=== PATIENT | female | born 1970 | race African-American/Black ===

== ENCOUNTER 2016-11-27 00:14 | Emergency (ER) | payer SELFPAY ==
[~2016-11-27] VITALS: Ht 160 cm; Wt 77.0 kg
[2016-11-27 06:22] VITALS: BP 127/85
== END 2016-11-27 07:55 | disposition home or self-care (01) ==
LOC: ER 07:39
DX: R20.9 Unspecified disturbances of skin sensation (principal); J45.909 Unspecified asthma, uncomplicated; K76.0 Fatty (change of) liver, not elsewhere classified; F17.200 Nicotine dependence, unspecified, uncomplicated
CPT/HCPCS: 93005; 99283

== ENCOUNTER 2017-03-29 02:02 | Emergency (ER) | payer SELFPAY ==
[~2017-03-29] VITALS: Ht 160 cm; Wt 68.0 kg
[2017-03-29] MEDS ORDERED: SODIUM CHLORIDE 0.9% 1,000 ML IV ONE (04:43)
[2017-03-29] MEDS ORDERED: FAMOTIDINE 20MG/2ML VIAL IV STA (04:43)
[2017-03-29] MEDS ORDERED: ONDANSETRON HCL 4MG/2ML VIAL IV STA (04:43)
[2017-03-29 04:52] LABS: CLARITY URINE CLOUDY (CLEAR); COLOR URINE DARK YELLOW (YELLOW); KETONES URINE NEGATIVE (NEGATIVE); LEUKOCYTE ESTERASE URINE NEGATIVE (NEGATIVE); NITRITE URINE NEGATIVE (NEGATIVE); OCCULT BLOOD URINE NEGATIVE (NEGATIVE); PH URINE 5.5 (4.5-8.0); PROTEIN URINE 1+ (NEGATIVE); SPECIFIC GRAVITY URINE 1.027 (1.005-1.030)
[2017-03-29 05:06] LABS: BASOPHILS % 0.6 % (0.0-2.0); EOSINOPHILS % 0.5 % (0.0-5.0); HEMATOCRIT. 40.5 % (36.0-48.0); HEMOGLOBIN. 13.5 g/dL (12.0-16.0); LYMPHOCYTES % 18.2 % (20.0-50.0); MEAN CORPUSCULAR HEMOGLOBIN 33.3 pg (28.0-32.0); MEAN CORPUSCULAR VOLUME 99.8 fL (81.0-99.0); MEAN PLATELET VOLUME 7.9 fl (7.4-10.4); NEUTROPHILS % 72.7 % (40.0-76.0); PLATELET 205 x1000/uL (130-400); RED BLOOD CELL COUNT 4.05 mill/uL (4.2-5.4); RED CELL DISTRIBUTION WIDTH 12.7 % (11.6-14.6)
[2017-03-29 05:14] LABS: CARBON DIOXIDE 32 mEq/L (21-32); CHLORIDE 100 mEq/L (98-107)
[2017-03-29 05:14] LABS: *AMPHETAMINES SCREEN URINE NEGATIVE (NEGATIVE); *BARBITURATES SCREEN URINE NEGATIVE (NEGATIVE); *BENZODIAZEPINES SCREEN URINE NEGATIVE (NEGATIVE); *COCAINE SCREEN URINE NEGATIVE (NEGATIVE); METHADONE URINE SCREEN NEGATIVE (NEGATIVE); OPIATES URINE SCREEN NEGATIVE (NEGATIVE); PHENCYCLIDINE URINE SCREEN NEGATIVE (NEGATIVE)
[2017-03-29 05:22] LABS: CANNABINOID URINE SCREEN PRESUMTIVE POSITIVE (NEGATIVE)
[2017-03-29] MEDS ORDERED: ACETAMINOPHEN 325MG TABLET PO ONE (05:30)
[2017-03-29] MEDS ORDERED: METOCLOPRAMIDE HCL 5MG TABLET PO ONE (07:00)
[2017-03-29] MEDS ORDERED: KETOROLAC 30MG/ML VIAL IV ONE (07:00)
[2017-03-29] MEDS ORDERED: DIPHENHYDRAMINE 50MG/ML VIAL IV ONE (07:00)
[2017-03-29] MEDS ORDERED: IOHEXOL-300 100 ML BOTTLE ONE (10:44)
[2017-03-29 12:12] VITALS: BP 128/71
== END 2017-03-29 12:15 | disposition home or self-care (01) ==
LOC: ER 02:11
DX: R10.0 Acute abdomen (principal); R11.0 Nausea; R51 Headache; K29.80 Duodenitis without bleeding; J45.909 Unspecified asthma, uncomplicated
CPT/HCPCS: 36415; 74177; 76705; 80053; 80305; 81001; 81025; 83690; 85025; 96361; 96374; 96375; 99285; J1200; J1885; J2405; J3490; J7030; Q9967; Z7610; J8597

== ENCOUNTER 2017-04-06 15:44 | Inpatient (IN) | payer OTHER, MEDICAID ==
[~2017-04-06] VITALS: Ht 182.9 cm; Wt 70.3 kg
[2017-04-06] MEDS ORDERED: ONDANSETRON HCL 4MG/2ML VIAL IV STA (17:28)
[2017-04-06] MEDS ORDERED: SODIUM CHLORIDE 0.9% 1,000 ML IV ONE ×2 (17:28→19:21)
[2017-04-06] MEDS ORDERED: MORPHINE SULFATE 4 MG/ML CPJ (NOT FOR IM USE) IV STA (17:28)
[2017-04-06 17:57] LABS: CHLORIDE 101 mEq/L (98-107)
[2017-04-06 17:58] LABS: PROTHROMBIN TIME 10.7 sec (9.4-11.6)
[2017-04-06 18:01] LABS: HEMOGLOBIN. 13.9 g/dL (12.0-16.0); MEAN CORPUSCULAR HEMOGLOBIN 34.5 pg (28.0-32.0); MEAN CORPUSCULAR VOLUME 101.7 fL (81.0-99.0); PLATELET 308 x1000/uL (130-400); RED BLOOD CELL COUNT 4.03 mill/uL (4.2-5.4); RED CELL DISTRIBUTION WIDTH 12.8 % (11.6-14.6)
[2017-04-06 18:04] LABS: CARBON DIOXIDE 28 mEq/L (21-32)
[2017-04-06 18:51] LABS: PLATELET ESTIMATE NORMAL
[2017-04-06] MEDS ORDERED: IPRATROPIUM/ALBUTEROL 0.5-3(2.5)MG/3ML NEB HHN ONE (19:30)
[2017-04-06] MEDS ORDERED: ACETAMINOPHEN 325MG TABLET PO ONE (19:45)
[2017-04-06 19:59] LABS: TROPONIN I < 0.02 ng/mL (0.00-0.04)
[2017-04-06] MEDS ORDERED: ONDANSETRON HCL 4MG/2ML VIAL IV ONE (20:00)
[2017-04-06] MEDS ORDERED: MORPHINE SULFATE 4 MG/ML CPJ (NOT FOR IM USE) IV ONE (20:00)
[2017-04-06] MEDS ORDERED: AZITHROMYCIN 500 MG in DEXT 5% WATER 250 ML IV SCH (20:30)
[2017-04-06] MEDS ORDERED: CEFTRIAXONE 1 G PREMIX 50 ML IV ONE (20:30)
[2017-04-06] MEDS ORDERED: METHYLPREDNISOLONE SOD SUCC 125 MG/2 ML VIAL IV ONE (20:45)
[2017-04-06 21:42] LABS: CLARITY URINE CLEAR (CLEAR); COLOR URINE DARK YELLOW (YELLOW); KETONES URINE TRACE (NEGATIVE); LEUKOCYTE ESTERASE URINE NEGATIVE (NEGATIVE); NITRITE URINE NEGATIVE (NEGATIVE); OCCULT BLOOD URINE NEGATIVE (NEGATIVE); PH URINE 5.5 (4.5-8.0); PROTEIN URINE 2+ (NEGATIVE); SPECIFIC GRAVITY URINE 1.026 (1.005-1.030)
[2017-04-06] MEDS ORDERED: DOCUSATE SODIUM 100MG CAPSULE PO PRN (22:00)
[2017-04-06] MEDS ORDERED: IPRATROPIUM/ALBUTEROL 0.5-3(2.5)MG/3ML NEB INH PRN (22:00)
[2017-04-06] MEDS ORDERED: MAGNESIUM/ALUMINUM HYDROXIDE/SIMETHICONE 30ML UDC PO PRN (22:00)
[2017-04-06] MEDS ORDERED: NITROGLYCERIN 0.4MG TABLET SL SL PRN (22:00)
[2017-04-06] MEDS ORDERED: GUAIFENESIN 200MG/10ML SUGAR FREE UDC PO PRN (22:00)
[2017-04-06] MEDS ORDERED: NA PHOS,M-B/NA PHOS,DI-BA ENEMA 118ML PR PRN (23:00)
[2017-04-06] MEDS: SODIUM CHLORIDE 0.9% 1,000 ML IV SCH (23:28)
[2017-04-07] MEDS: TRAMADOL 50MG TABLET PO PRN ×3 (01:31→21:39)
[2017-04-07] MEDS: ACETAMINOPHEN 325MG TABLET PO PRN ×3 (03:05→23:25)
[2017-04-07 08:00] VITALS: BP 123/73
[2017-04-07 09:00] VITALS: BP 123/73
[2017-04-07] MEDS: PANTOPRAZOLE SODIUM 40 MG/VIAL IV SCH (09:42)
[2017-04-07] MEDS: GUAIFENESIN/DM 600MG/30MG ER TAB 12HR PO SCH ×2 (09:42→21:38)
[2017-04-07] MEDS: KETOROLAC 15MG/ML VIAL IV PRN ×2 (09:50→23:19)
[2017-04-07] MEDS: ENOXAPARIN 40MG/0.4ML SYR SUBCUT SCH (10:31)
[2017-04-07 11:00] VITALS: BP 123/73
[2017-04-07] MEDS ORDERED: DEXTROSE 50% WATER 50ML SYRINGE IV PRN (11:15)
[2017-04-07] MEDS ORDERED: ALBU2.5V13 IH (11:43)
[2017-04-07 12:00] VITALS: BP 120/77
[2017-04-07] MEDS: SUCRALFATE 1 G/10 ML UDC PO SCH ×3 (12:08→21:38)
[2017-04-07] MEDS: INSULIN LISPRO 100 UNITS/ML SUBCUT SCH ×3 (12:30→21:00)
[2017-04-07] MEDS: BLOOD SUGAR DIAGNOSTIC STRIP TEST SCH ×3 (12:43→21:43)
[2017-04-07 15:04] VITALS: BP 126/85
[2017-04-07] MEDS: SODIUM CHLORIDE 0.9% 1,000 ML IV SCH ×2 (15:15→23:29)
[2017-04-07 15:47] LABS: *AMPHETAMINES SCREEN URINE NEGATIVE (NEGATIVE); *BARBITURATES SCREEN URINE NEGATIVE (NEGATIVE); *BENZODIAZEPINES SCREEN URINE NEGATIVE (NEGATIVE); *COCAINE SCREEN URINE NEGATIVE (NEGATIVE); METHADONE URINE SCREEN NEGATIVE (NEGATIVE); PHENCYCLIDINE URINE SCREEN NEGATIVE (NEGATIVE)
[2017-04-07 15:49] LABS: CANNABINOID URINE SCREEN PRESUMTIVE POSITIVE (NEGATIVE); OPIATES URINE SCREEN PRESUMTIVE POSITIVE (NEGATIVE)
[2017-04-07 20:00] VITALS: BP 121/80
[2017-04-07] MEDS ORDERED: CEFTRIAXONE 1,000 MG in DEXTROSE 5% WATER 50 ML IV SCH (21:00)
[2017-04-07] MEDS: AZITHROMYCIN 500 MG in DEXT 5% WATER 250 ML IV SCH (23:19)
[2017-04-08] VITALS: BP 131/95
[2017-04-08] MEDS: ZOLPIDEM TARTRATE 5MG TABLET PO PRN ×2 (00:23→22:08)
[2017-04-08 04:00] VITALS: BP 107/76
[2017-04-08] MEDS: BLOOD SUGAR DIAGNOSTIC STRIP TEST SCH ×4 (07:40→20:48)
[2017-04-08] MEDS: SUCRALFATE 1 G/10 ML UDC PO SCH ×4 (07:46→20:47)
[2017-04-08] MEDS: ACETAMINOPHEN 325MG TABLET PO PRN (07:47)
[2017-04-08] MEDS: KETOROLAC 15MG/ML VIAL IV PRN ×3 (07:49→22:09)
[2017-04-08] MEDS: INSULIN LISPRO 100 UNITS/ML SUBCUT SCH ×4 (07:54→20:47)
[2017-04-08 08:00] VITALS: BP 128/87
[2017-04-08] MEDS: ENOXAPARIN 40MG/0.4ML SYR SUBCUT SCH (09:21)
[2017-04-08] MEDS: PANTOPRAZOLE SODIUM 40 MG/VIAL IV SCH (09:21)
[2017-04-08] MEDS: GUAIFENESIN/DM 600MG/30MG ER TAB 12HR PO SCH ×2 (09:21→20:47)
[2017-04-08] MEDS ORDERED: IPRATROPIUM/ALBUTEROL 0.5-3(2.5)MG/3ML NEB HHN PRN (11:45)
[2017-04-08 12:00] VITALS: BP 100/63
[2017-04-08 12:18] LABS: HEMATOCRIT 32.2 % (36.0-48.0); HEMOGLOBIN 10.6 g/dL (12.0-16.0); MEAN CORPUSCULAR HEMOGLOBIN 33.3 pg (28.0-32.0); MEAN CORPUSCULAR VOLUME 101.1 fL (81.0-99.0); PLATELET 301 x1000/uL (130-400); RED BLOOD CELL COUNT 3.18 mill/uL (4.2-5.4); RED CELL DISTRIBUTION WIDTH 12.6 % (11.6-14.6)
[2017-04-08] MEDS ORDERED: SODIUM CHLORIDE 10% FOR INH 15ML VIAL NEB INH NR (12:30)
[2017-04-08 12:31] LABS: CARBON DIOXIDE 27 mEq/L (21-32); CHLORIDE 105 mEq/L (98-107)
[2017-04-08] MEDS: METHYLPREDNISOLONE SOD SUCC 125 MG/2 ML VIAL IV SCH ×2 (14:11→22:08)
[2017-04-08] MEDS: SODIUM CHLORIDE 0.9% 1,000 ML IV SCH (14:11)
[2017-04-08] MEDS: NICOTINE 14MG PATCH TD SCH (15:15)
[2017-04-08] MEDS: MONTELUKAST SODIUM 10MG TABLET PO SCH (17:44)
[2017-04-08 20:00] VITALS: BP 146/96
[2017-04-08] MEDS: BUDESONIDE 0.5MG/2ML NEB HHN SCH (20:32)
[2017-04-08] MEDS: IPRATROPIUM/ALBUTEROL 0.5-3(2.5)MG/3ML NEB INH SCH (20:33)
[2017-04-08] MEDS: CEFTRIAXONE 1 G PREMIX 50 ML IV SCH (20:47)
[2017-04-08] MEDS: FAMOTIDINE 20MG/2ML VIAL IV SCH (20:47)
[2017-04-08] MEDS: AZITHROMYCIN 500 MG in DEXT 5% WATER 250 ML IV SCH (22:09)
[2017-04-09] VITALS: BP 146/105
[2017-04-09] MEDS: IPRATROPIUM/ALBUTEROL 0.5-3(2.5)MG/3ML NEB INH SCH ×6 (00:30→20:18)
[2017-04-09 04:00] VITALS: BP 146/93
[2017-04-09] MEDS: SODIUM CHLORIDE 0.9% 1,000 ML IV SCH ×2 (05:50→21:57)
[2017-04-09] MEDS: METHYLPREDNISOLONE SOD SUCC 125 MG/2 ML VIAL IV SCH ×3 (05:50→21:58)
[2017-04-09] MEDS: KETOROLAC 15MG/ML VIAL IV PRN ×3 (06:33→23:02)
[2017-04-09] MEDS: BLOOD SUGAR DIAGNOSTIC STRIP TEST SCH ×4 (07:40→21:43)
[2017-04-09 08:00] VITALS: BP 140/93
[2017-04-09] MEDS: GUAIFENESIN/DM 600MG/30MG ER TAB 12HR PO SCH ×2 (08:35→21:57)
[2017-04-09] MEDS: SUCRALFATE 1 G/10 ML UDC PO SCH ×4 (08:35→21:57)
[2017-04-09] MEDS: FAMOTIDINE 20MG/2ML VIAL IV SCH ×2 (08:35→21:57)
[2017-04-09] MEDS: INSULIN LISPRO 100 UNITS/ML SUBCUT SCH ×4 (08:35→21:59)
[2017-04-09] MEDS: ENOXAPARIN 40MG/0.4ML SYR SUBCUT SCH (08:36)
[2017-04-09] MEDS: NICOTINE 14MG PATCH TD SCH ×2 (08:37→09:00)
[2017-04-09] MEDS: TRAMADOL 50MG TABLET PO PRN ×2 (08:49→17:49)
[2017-04-09] MEDS: BUDESONIDE 0.5MG/2ML NEB HHN SCH ×2 (09:12→20:19)
[2017-04-09 12:00] VITALS: BP 133/83
[2017-04-09 16:00] VITALS: BP 143/90
[2017-04-09] MEDS: MONTELUKAST SODIUM 10MG TABLET PO SCH (17:28)
[2017-04-09 20:00] VITALS: BP 127/69
[2017-04-09] MEDS: CEFTRIAXONE 1 G PREMIX 50 ML IV SCH (21:58)
[2017-04-09] MEDS: AZITHROMYCIN 500 MG in DEXT 5% WATER 250 ML IV SCH (23:02)
[2017-04-09] MEDS: ZOLPIDEM TARTRATE 5MG TABLET PO PRN (23:05)
[2017-04-10] VITALS: BP 133/77
[2017-04-10] MEDS: IPRATROPIUM/ALBUTEROL 0.5-3(2.5)MG/3ML NEB INH SCH ×6 (00:29→20:00)
[2017-04-10 04:00] VITALS: BP 136/88
[2017-04-10] MEDS: SODIUM CHLORIDE 0.9% 1,000 ML IV SCH (05:20)
[2017-04-10] MEDS: METHYLPREDNISOLONE SOD SUCC 125 MG/2 ML VIAL IV SCH ×3 (05:20→21:50)
[2017-04-10] MEDS: BLOOD SUGAR DIAGNOSTIC STRIP TEST SCH ×4 (05:20→21:24)
[2017-04-10] MEDS: SUCRALFATE 1 G/10 ML UDC PO SCH ×4 (05:20→21:49)
[2017-04-10] MEDS: INSULIN LISPRO 100 UNITS/ML SUBCUT SCH ×4 (05:35→21:51)
[2017-04-10 08:00] VITALS: BP 147/86
[2017-04-10] MEDS: ENOXAPARIN 40MG/0.4ML SYR SUBCUT SCH (08:55)
[2017-04-10] MEDS: FAMOTIDINE 20MG/2ML VIAL IV SCH ×2 (08:55→21:50)
[2017-04-10] MEDS: GUAIFENESIN/DM 600MG/30MG ER TAB 12HR PO SCH ×2 (08:55→21:50)
[2017-04-10] MEDS: NICOTINE 14MG PATCH TD SCH ×2 (09:00→09:06)
[2017-04-10] MEDS: BUDESONIDE 0.5MG/2ML NEB HHN SCH ×2 (09:00→20:59)
[2017-04-10] MEDS: TRAMADOL 50MG TABLET PO PRN ×2 (09:23→21:50)
[2017-04-10 12:00] VITALS: BP 111/92
[2017-04-10] MEDS ORDERED: LIDOCAINE HCL/PF 1% 2ML VIAL ONE (14:23)
[2017-04-10 14:56] LABS: BG BASE EXCESS 1.9 mmol/L (-2.0-2.0); BG CARBOXYHEMOGLOBIN 0.7 % (0.5-1.5); BG DEOXYHEMOGLOBIN 7.5 % (0.0-5.0); BG HCO3 ACT 26.2 mmol/L (22.0-26.0); BG METHEMOGLOBIN 0.3 % (0.0-1.5); BG OXYGEN SATURATION 92.4 % (92.0-98.5); BG OXYHEMOGLOBIN 91.5 % (94.0-97.0); BG PCO2 39.8 mmHg (35.0-45.0); BG PH 7.436 (7.350-7.450); BG PO2 62.4 mmHg (75.0-100.0); BG SAMPLE SITE RIGHT BRACHIAL; BG TOTAL HEMOGLOBIN 12.8 g/dL (12.0-18.0); BG VENT MODE ROOM AIR
[2017-04-10 16:00] VITALS: BP 156/96
[2017-04-10] MEDS: MONTELUKAST SODIUM 10MG TABLET PO SCH (16:33)
[2017-04-10] MEDS: KETOROLAC 15MG/ML VIAL IV PRN (16:44)
[2017-04-10 20:00] VITALS: BP 153/100
[2017-04-10] MEDS: CEFTRIAXONE 1 G PREMIX 50 ML IV SCH (21:49)
[2017-04-10] MEDS: CLONIDINE 0.1MG TABLET PO PRN (21:50)
[2017-04-10] MEDS: ONDANSETRON HCL 4MG/2ML VIAL IV PRN (21:50)
[2017-04-10] MEDS: ZOLPIDEM TARTRATE 5MG TABLET PO PRN (22:41)
[2017-04-11] VITALS: BP 158/90
[2017-04-11] MEDS: AZITHROMYCIN 500 MG in DEXT 5% WATER 250 ML IV SCH ×2 (00:09→23:15)
[2017-04-11] MEDS: IPRATROPIUM/ALBUTEROL 0.5-3(2.5)MG/3ML NEB INH SCH ×5 (00:46→21:25)
[2017-04-11 04:00] VITALS: BP 160/94
[2017-04-11] MEDS: BLOOD SUGAR DIAGNOSTIC STRIP TEST SCH ×4 (05:07→21:36)
[2017-04-11] MEDS: SUCRALFATE 1 G/10 ML UDC PO SCH ×4 (05:07→21:32)
[2017-04-11] MEDS: METHYLPREDNISOLONE SOD SUCC 125 MG/2 ML VIAL IV SCH (05:07)
[2017-04-11] MEDS: CLONIDINE 0.1MG TABLET PO PRN ×2 (05:08→21:32)
[2017-04-11] MEDS: BUDESONIDE 0.5MG/2ML NEB HHN SCH (07:34)
[2017-04-11 08:00] VITALS: BP 146/94
[2017-04-11] MEDS: INSULIN LISPRO 100 UNITS/ML SUBCUT SCH ×4 (08:10→21:34)
[2017-04-11] MEDS: FAMOTIDINE 20MG/2ML VIAL IV SCH (09:35)
[2017-04-11] MEDS: NICOTINE 14MG PATCH TD SCH (09:35)
[2017-04-11] MEDS: ENOXAPARIN 40MG/0.4ML SYR SUBCUT SCH (09:36)
[2017-04-11] MEDS: GUAIFENESIN/DM 600MG/30MG ER TAB 12HR PO SCH ×2 (09:36→21:32)
[2017-04-11] MEDS: FAMOTIDINE 20MG TABLET PO SCH ×2 (10:56→21:32)
[2017-04-11] MEDS: METHYLPREDNISOLONE SOD SUCC 40 MG/ML VIAL IV SCH ×2 (10:56→17:51)
[2017-04-11 12:00] VITALS: BP 149/95
[2017-04-11 16:00] VITALS: BP 146/98
[2017-04-11] MEDS: MONTELUKAST SODIUM 10MG TABLET PO SCH (17:32)
[2017-04-11] MEDS: TRAMADOL 50MG TABLET PO PRN (17:32)
[2017-04-11 20:00] VITALS: BP 167/90
[2017-04-11] MEDS: CEFTRIAXONE 1 G PREMIX 50 ML IV SCH (21:32)
[2017-04-11] MEDS: ZOLPIDEM TARTRATE 5MG TABLET PO PRN (21:50)
[2017-04-12] VITALS (7 sets, daily range): BP systolic 124–156; BP diastolic 76–93
[2017-04-12] MEDS: METHYLPREDNISOLONE SOD SUCC 40 MG/ML VIAL IV SCH ×3 (01:45→17:26)
[2017-04-12] MEDS: IPRATROPIUM/ALBUTEROL 0.5-3(2.5)MG/3ML NEB INH SCH ×4 (02:24→21:00)
[2017-04-12] MEDS: ONDANSETRON HCL 4MG/2ML VIAL IV PRN (04:29)
[2017-04-12] MEDS: DIPHENHYDRAMINE 50MG/ML VIAL IV PRN (04:35)
[2017-04-12] MEDS: BLOOD SUGAR DIAGNOSTIC STRIP TEST SCH ×4 (07:13→21:15)
[2017-04-12] MEDS: SUCRALFATE 1 G/10 ML UDC PO SCH ×4 (07:55→21:13)
[2017-04-12] MEDS: INSULIN LISPRO 100 UNITS/ML SUBCUT SCH ×4 (07:57→21:15)
[2017-04-12] MEDS: NICOTINE 14MG PATCH TD SCH (09:00)
[2017-04-12] MEDS: GUAIFENESIN/DM 600MG/30MG ER TAB 12HR PO SCH ×2 (09:44→21:13)
[2017-04-12] MEDS: FAMOTIDINE 20MG TABLET PO SCH ×2 (09:45→21:13)
[2017-04-12] MEDS: ENOXAPARIN 40MG/0.4ML SYR SUBCUT SCH (09:45)
[2017-04-12] MEDS: MONTELUKAST SODIUM 10MG TABLET PO SCH (17:23)
[2017-04-12] MEDS: CEFTRIAXONE 1 G PREMIX 50 ML IV SCH (21:13)
[2017-04-12] MEDS: AZITHROMYCIN 500 MG in DEXT 5% WATER 250 ML IV SCH (22:18)
[2017-04-12] MEDS: ZOLPIDEM TARTRATE 5MG TABLET PO PRN (22:18)
[2017-04-13] MEDS: DIPHENHYDRAMINE 50MG/ML VIAL IV PRN (02:17)
[2017-04-13] MEDS: METHYLPREDNISOLONE SOD SUCC 40 MG/ML VIAL IV SCH ×3 (02:17→18:00)
[2017-04-13] MEDS: IPRATROPIUM/ALBUTEROL 0.5-3(2.5)MG/3ML NEB INH SCH ×4 (03:45→19:59)
[2017-04-13 04:00] VITALS: BP_SYST 158; BP_DIAS 101; BP_DIAS 99
[2017-04-13] MEDS: ONDANSETRON HCL 4MG/2ML VIAL IV PRN (04:41)
[2017-04-13] MEDS: SUCRALFATE 1 G/10 ML UDC PO SCH ×4 (07:40→21:48)
[2017-04-13] MEDS: BLOOD SUGAR DIAGNOSTIC STRIP TEST SCH ×4 (07:40→21:24)
[2017-04-13 08:00] VITALS: BP 154/91
[2017-04-13] MEDS: NICOTINE 14MG PATCH TD SCH (09:00)
[2017-04-13] MEDS: FAMOTIDINE 20MG TABLET PO SCH ×2 (09:50→21:48)
[2017-04-13] MEDS: ENOXAPARIN 40MG/0.4ML SYR SUBCUT SCH (09:50)
[2017-04-13] MEDS: GUAIFENESIN/DM 600MG/30MG ER TAB 12HR PO SCH ×2 (09:50→21:48)
[2017-04-13] MEDS: INSULIN LISPRO 100 UNITS/ML SUBCUT SCH ×4 (10:01→21:55)
[2017-04-13 12:00] VITALS: BP 132/98
[2017-04-13 16:00] VITALS: BP 139/85
[2017-04-13] MEDS: MONTELUKAST SODIUM 10MG TABLET PO SCH (19:06)
[2017-04-13] MEDS: CEFTRIAXONE 1 G PREMIX 50 ML IV SCH (21:48)
[2017-04-13] MEDS: AZITHROMYCIN 500 MG in DEXT 5% WATER 250 ML IV SCH (23:10)
[2017-04-13] MEDS: ZOLPIDEM TARTRATE 5MG TABLET PO PRN (23:16)
[2017-04-14] MEDS: METHYLPREDNISOLONE SOD SUCC 40 MG/ML VIAL IV SCH ×2 (02:11→09:23)
[2017-04-14 05:00] VITALS: BP 126/95
[2017-04-14] MEDS: BLOOD SUGAR DIAGNOSTIC STRIP TEST SCH (06:13)
[2017-04-14 08:00] VITALS: BP 109/71
[2017-04-14] MEDS: SUCRALFATE 1 G/10 ML UDC PO SCH (08:49)
[2017-04-14] MEDS: FAMOTIDINE 20MG TABLET PO SCH (08:50)
[2017-04-14] MEDS: GUAIFENESIN/DM 600MG/30MG ER TAB 12HR PO SCH (08:50)
[2017-04-14] MEDS: INSULIN LISPRO 100 UNITS/ML SUBCUT SCH (08:54)
[2017-04-14] MEDS: NICOTINE 14MG PATCH TD SCH (08:55)
[2017-04-14] MEDS: ENOXAPARIN 40MG/0.4ML SYR SUBCUT SCH (08:55)
[2017-04-14] MEDS: IPRATROPIUM/ALBUTEROL 0.5-3(2.5)MG/3ML NEB INH SCH (09:05)
[2017-04-14 10:53] VITALS: BP 109/71
== END 2017-04-14 11:45 | disposition home or self-care (01) | DRG 720 ==
LOC: ER 15:46 → 5WST 21:05 → EDBEDREQ 21:18 → EDBEDREQSVC 21:18 → CANRESERV 04-07 06:57 → ENRESERV 04-07 06:57 → 7WST 04-07 14:33
PROVIDERS: ADMIT Internal Medicine; ATTEND Internal Medicine
DX: A41.9 Sepsis, unspecified organism (principal); J96.00 Acute respiratory failure, unspecified whether with hypoxia or hypercapnia; E44.0 Moderate protein-calorie malnutrition; J15.4 Pneumonia due to other streptococci; J45.901 Unspecified asthma with (acute) exacerbation; K29.80 Duodenitis without bleeding; D63.8 Anemia in other chronic diseases classified elsewhere; B95.5 Unspecified streptococcus as the cause of diseases classified elsewhere; B96.4 Proteus (mirabilis) (morganii) as the cause of diseases classified elsewhere; E11.65 Type 2 diabetes mellitus with hyperglycemia; F10.10 Alcohol abuse, uncomplicated; F12.10 Cannabis abuse, uncomplicated; F17.210 Nicotine dependence, cigarettes, uncomplicated; N39.0 Urinary tract infection, site not specified; Z78.9 Other specified health status; Z83.3 Family history of diabetes mellitus; Z98.891 History of uterine scar from previous surgery; Z79.899 Other long term (current) drug therapy; Z68.21 Body mass index [BMI] 21.0-21.9, adult
CPT/HCPCS: 36415; 36600; 71045; 71250; 80048; 80053; 80305; 81001; 82375; 82805; 82962; 83036; 83605; 83690; 83880; 84484; 85025; 85027; 85610; 86703; 87040; 87070; 87077; 87086; 87116; 87186; 87804; 93005; 93306; 93970; 94640; 94664; 99285; C9113; G0482; J0456; J0696; J1200; J1650; J1815; J1885; J2270; J2405; J2920; J2930; J3490; J7030; J7060; J7131; J7620; J7626

== ENCOUNTER 2017-06-01 09:38 | Emergency (ER) | payer MEDICAID ==
[~2017-06-01] VITALS: Ht 160 cm; Wt 73.0 kg
[~2017-06-01 09:38] MED LIST: ALBU2.5V13 IH
[2017-06-01 10:23] VITALS: BP 122/86
== END 2017-06-01 15:39 | disposition left against medical advice (07) ==
LOC: ER 11:13
DX: R10.9 Unspecified abdominal pain (principal); R11.0 Nausea; Z53.21 Procedure and treatment not carried out due to patient leaving prior to being seen by health care provider

== ENCOUNTER 2017-06-02 08:16 | Inpatient (IN) | payer MEDICAID ==
[~2017-06-02] VITALS: Ht 160 cm; Wt 68.0 kg
[2017-06-02 11:00] LABS: BASOPHILS % 1.5 % (0.0-2.0); EOSINOPHILS % 3.6 % (0.0-5.0); HEMATOCRIT. 44.9 % (36.0-48.0); HEMOGLOBIN. 15.2 g/dL (12.0-16.0); LYMPHOCYTES % 30.4 % (20.0-50.0); MEAN CORPUSCULAR HEMOGLOBIN 30.9 pg (28.0-32.0); MEAN CORPUSCULAR VOLUME 91.1 fL (81.0-99.0); MEAN PLATELET VOLUME 9.6 fl (7.4-10.4); MONOCYTES % 7.5 % (2.0-8.0); PLATELET 167 x1000/uL (130-400); RED BLOOD CELL COUNT 4.93 mill/uL (4.2-5.4); RED CELL DISTRIBUTION WIDTH 12.9 % (11.6-14.6)
[2017-06-02 11:02] LABS: CHLORIDE 94 mEq/L (98-107)
[2017-06-02] MEDS ORDERED: AZITHROMYCIN 500 MG TABLET PO ONE (11:30)
[2017-06-02] MEDS ORDERED: CEFTRIAXONE SODIUM 250 MG/VIAL IM ONE (11:30)
[2017-06-02 11:35] LABS: CLARITY URINE CLEAR (CLEAR); COLOR URINE YELLOW (YELLOW); KETONES URINE NEGATIVE (NEGATIVE); LEUKOCYTE ESTERASE URINE NEGATIVE (NEGATIVE); NITRITE URINE NEGATIVE (NEGATIVE); OCCULT BLOOD URINE NEGATIVE (NEGATIVE); PH URINE 5.5 (4.5-8.0); PROTEIN URINE NEGATIVE (NEGATIVE); SPECIFIC GRAVITY URINE 1.037 (1.005-1.030); UROBILINOGEN URINE 0.2 E.U./dL (0.2-1.0)
[2017-06-02] MEDS ORDERED: SODIUM CHLORIDE 0.9% 1,000 ML IV ONE (11:35)
[2017-06-02 11:37] LABS: UCG SCREEN NEGATIVE
[2017-06-02] MEDS ORDERED: INSULIN REGULAR (HUMULIN R) 300UNITS/3ML IV ONE (11:45)
[2017-06-02] MEDS ORDERED: LEVOFLOXACIN 500MG PREMIX 100 ML IV ONE (12:45)
[2017-06-02 15:30] VITALS: BP 123/73
[2017-06-02] MEDS ORDERED: CLONIDINE 0.1MG TABLET PO PRN (16:00)
[2017-06-02] MEDS ORDERED: ACETAMINOPHEN 325MG TABLET PO PRN (16:00)
[2017-06-02] MEDS ORDERED: NITROGLYCERIN 0.4MG TABLET SL SL PRN (16:00)
[2017-06-02] MEDS ORDERED: NA PHOS,M-B/NA PHOS,DI-BA ENEMA 118ML PR PRN (16:00)
[2017-06-02] MEDS ORDERED: IPRATROPIUM/ALBUTEROL 0.5-3(2.5)MG/3ML NEB INH PRN (16:00)
[2017-06-02] MEDS ORDERED: KETOROLAC 15MG/ML VIAL IV PRN (16:00)
[2017-06-02] MEDS ORDERED: DOCUSATE SODIUM 100MG CAPSULE PO PRN (16:00)
[2017-06-02] MEDS ORDERED: MAGNESIUM/ALUMINUM HYDROXIDE/SIMETHICONE 30ML UDC PO PRN (16:00)
[2017-06-02] MEDS ORDERED: LORAZEPAM 0.5MG TABLET PO PRN (16:00)
[2017-06-02] MEDS ORDERED: ZOLPIDEM TARTRATE 5MG TABLET PO PRN (16:00)
[2017-06-02] MEDS ORDERED: DIPHENHYDRAMINE 50MG/ML VIAL IV PRN (16:00)
[2017-06-02] MEDS ORDERED: ONDANSETRON HCL 4MG/2ML VIAL IV PRN (16:00)
[2017-06-02] MEDS ORDERED: DEXTROSE 50% WATER 50ML SYRINGE IV PRN (16:00)
[2017-06-02] MEDS ORDERED: GUAIFENESIN 200MG/10ML SUGAR FREE UDC PO PRN (16:00)
[2017-06-02] MEDS ORDERED: ENOXAPARIN 40MG/0.4ML SYR SUBCUT SCH (16:00)
[2017-06-02 16:02] VITALS: BP 123/73
[2017-06-02] MEDS: METRONIDAZOLE 500 MG PREMIX 100 ML IV SCH (17:26)
[2017-06-02] MEDS: SODIUM CHLORIDE 0.9% 1,000 ML IV SCH (17:29)
[2017-06-02] MEDS: INSULIN LISPRO 100 UNITS/ML SUBCUT SCH ×2 (17:50→22:26)
[2017-06-02] MEDS: BLOOD SUGAR DIAGNOSTIC STRIP TEST SCH ×2 (17:50→21:00)
[2017-06-02 20:00] VITALS: BP 106/59
[2017-06-02 20:46] LABS: *AMPHETAMINES SCREEN URINE NEGATIVE (NEGATIVE); *BARBITURATES SCREEN URINE NEGATIVE (NEGATIVE); *BENZODIAZEPINES SCREEN URINE NEGATIVE (NEGATIVE); *COCAINE SCREEN URINE NEGATIVE (NEGATIVE); METHADONE URINE SCREEN NEGATIVE (NEGATIVE)
[2017-06-02 20:47] LABS: CANNABINOID URINE SCREEN NEGATIVE (NEGATIVE); PHENCYCLIDINE URINE SCREEN NEGATIVE (NEGATIVE)
[2017-06-02 20:48] LABS: OPIATES URINE SCREEN PRESUMTIVE POSITIVE (NEGATIVE)
[2017-06-02] MEDS ORDERED: INSULIN GLARGINE UD 100 UNITS/ML SYR SUBCUT SCH (22:00)
[2017-06-02] MEDS: FAMOTIDINE 20MG/2ML VIAL IV SCH (22:16)
[2017-06-03] VITALS: BP 106/61
[2017-06-03] MEDS: METRONIDAZOLE 500 MG PREMIX 100 ML IV SCH ×2 (03:36→09:12)
[2017-06-03 04:00] VITALS: BP 93/59
[2017-06-03] MEDS: SODIUM CHLORIDE 0.9% 1,000 ML IV SCH (07:04)
[2017-06-03] MEDS: BLOOD SUGAR DIAGNOSTIC STRIP TEST SCH ×2 (07:05→12:42)
[2017-06-03 08:00] VITALS: BP 93/56
[2017-06-03] MEDS: FAMOTIDINE 20MG/2ML VIAL IV SCH (08:21)
[2017-06-03] MEDS: INSULIN LISPRO 100 UNITS/ML SUBCUT SCH ×2 (08:27→12:42)
[2017-06-03] MEDS ORDERED: LEVOFLOXACIN 500MG PREMIX 100 ML IV SCH (11:00)
[2017-06-03 15:13] VITALS: BP 102/60
[2017-06-03 17:08] VITALS: BP 102/60
[2017-06-07 09:06] LABS: CHLAMYDIA TRACHOMATIS NAA Negative (Negative); NEISSERIA GONORRHOEAE NAA Negative (Negative)
== END 2017-06-03 16:13 | disposition home or self-care (01) | DRG 463 ==
LOC: ER 08:36 → 6EST 12:41 → ENRESERV 14:38
PROVIDERS: ADMIT Internal Medicine; ATTEND Internal Medicine
DX: N39.0 Urinary tract infection, site not specified (principal); E11.65 Type 2 diabetes mellitus with hyperglycemia; J45.901 Unspecified asthma with (acute) exacerbation; E87.1 Hypo-osmolality and hyponatremia; Z87.891 Personal history of nicotine dependence; Z79.899 Other long term (current) drug therapy; Z98.891 History of uterine scar from previous surgery
CPT/HCPCS: 36415; 71045; 80053; 80061; 80305; 81003; 81025; 82010; 82962; 83036; 83605; 83690; 84484; 85025; 87086; 87210; 87491; 87591; 93005; 93970; 96365; 96366; 96368; 96375; 99285; J0696; J1650; J1815; J1956; J3490; J7030; J7042

== ENCOUNTER 2024-03-24 23:24 | Emergency (ER) | payer MEDICAID ==
[2024-03-24 23:27] VITALS: BP 170/103; TEMP 36.83628; O2SAT 96
[2024-03-25] MEDS: ALBUTEROL (0.083%) 2.5MG/3ML NEB HHN STA (00:34)
[2024-03-25] MEDS: IPRATROPIUM BROMIDE (0.02%) 0.5MG/2.5ML NEB HHN STA (00:34)
[2024-03-25 00:46] LABS: BASOPHILS % 0.3 % (0.0-2.0); DIFFERENTIAL COMMENT 0; EOSINOPHILS % 1.6 % (0.0-5.0); HEMATOCRIT. 42.2 % (36.0-48.0); HEMOGLOBIN. 14.3 g/dL (12.0-16.0); LYMPHOCYTES % 35.9 % (20.0-50.0); MEAN CORPUSCULAR HEMOGLOBIN 35.5 pg (28.0-32.0); MEAN CORPUSCULAR VOLUME 104.6 fL (81.0-99.0); MEAN PLATELET VOLUME 7.4 fl (7.4-10.4); MONOCYTES % 7.6 % (2.0-8.0); NEUTROPHILS % 54.6 % (40.0-76.0); PLATELET 241 x1000/uL (130-400); RED BLOOD CELL COUNT 4.04 mill/uL (4.2-5.4); RED CELL DISTRIBUTION WIDTH 12.2 % (11.6-14.6); WHITE BLOOD COUNT 8.2 x1000/uL (4.5-11.0)
[2024-03-25 00:59] LABS: CHLORIDE 107 mEq/L (98-107); POTASSIUM 3.6 mEq/L (3.5-5.1); SODIUM 140 mEq/L (136-145)
[2024-03-25 01:00] LABS: CALCIUM 9.9 mg/dL (8.7-10.4); CARBON DIOXIDE 22 mEq/L (21-32)
[2024-03-25 01:05] LABS: CREATININE 0.7 mg/dL (0.6-1.0); GLUCOSE 101 mg/dL (70-105); UREA NITROGEN BLOOD 10 mg/dL (9-23)
[2024-03-25 01:07] LABS: ALANINE AMINOTRANSFERASE 9 IU/L (10-49); ALBUMIN 4.6 g/dL (3.2-4.8); ASPARTATE AMINOTRANSFERASE 17 IU/L (<34); BILIRUBIN TOTAL 0.4 mg/dL (0.1-1.0); PROTEIN TOTAL 7.7 g/dL (6.0-8.3)
[2024-03-25] MEDS: PREDNISONE 20MG TABLET PO STA (01:09)
[2024-03-25 01:12] LABS: TROPONIN I HIGH SENSITIVITY < 4 ng/L (3.0-34)
[2024-03-25 01:53] VITALS: PULSE 85; RESP 18; O2SAT 97
[2024-03-25] MEDS ORDERED: ALBU18HF2 IH (03:30)
[2024-03-25] MEDS ORDERED: P20 MT (03:30)
== END 2024-03-25 03:40 | disposition home or self-care (01) ==
LOC: ER 23:24
DX: J45.901 Unspecified asthma with (acute) exacerbation (principal); E11.9 Type 2 diabetes mellitus without complications; Z76.0 Encounter for issue of repeat prescription; Z98.890 Other specified postprocedural states
CPT/HCPCS: 80053; 83880; 85025; 84484; 36415; 71045; 93005; 99285; 94640; J7512; Z7610 ×3

== ENCOUNTER 2024-05-04 22:47 | Emergency (ER) | payer MEDICAID, OTHER ==
[~2024-05-04] VITALS: Ht 160 cm; Wt 54.0 kg
[~2024-05-04 22:47] MED LIST changes: +ALBU18HF2 IH; +P20 MT
[2024-05-04 23:09] VITALS: TEMP 37.4; O2SAT 94
[2024-05-05] MEDS ORDERED: ONDA-239 PO (00:41)
[2024-05-05] MEDS ORDERED: ONDANSETRON HCL 4MG/2ML INJ IM ONE (00:45)
[2024-05-05] MEDS: ONDANSETRON HCL 4MG/2ML INJ IV STA (01:02)
[2024-05-05 01:42] VITALS: BP 121/87; PULSE 124; RESP 18; TEMP 99.4
[2024-05-05] MEDS: IBUPROFEN 600MG TABLET PO STA (01:42)
[2024-05-05] MEDS: SODIUM CHLORIDE 0.9% 1,000 ML IV ONE (01:42)
[2024-05-05] MEDS: ONDANSETRON HCL 4MG/2ML INJ IM ONE (01:42)
[2024-05-05] MEDS: ACETAMINOPHEN 325MG TABLET PO STA (01:42)
== END 2024-05-05 03:23 | disposition home or self-care (01) ==
LOC: ER 22:47
DX: A08.4 Viral intestinal infection, unspecified (principal); J06.9 Acute upper respiratory infection, unspecified; B97.89 Other viral agents as the cause of diseases classified elsewhere; E11.9 Type 2 diabetes mellitus without complications; I10 Essential (primary) hypertension; J45.909 Unspecified asthma, uncomplicated; Z98.890 Other specified postprocedural states
CPT/HCPCS: 99283; 96360; 96372; J2405; J7030; Z7610

== ENCOUNTER 2024-09-03 01:18 | Emergency (ER) | payer OTHER ==
[~2024-09-03] VITALS: Ht 162.6 cm; Wt 63.5 kg
[~2024-09-03 01:18] MED LIST changes: +ONDA-239 PO
[2024-09-03 01:27] VITALS: TEMP 36.8; O2SAT 98
[2024-09-03] MEDS: ONDANSETRON 4MG ODT PO ONE (02:40)
[2024-09-03 02:41] LABS: CHLORIDE 104 mEq/L (98-107); POTASSIUM 3.3 mEq/L (3.5-5.1); SODIUM 141 mEq/L (136-145)
[2024-09-03 02:42] LABS: CALCIUM 9.4 mg/dL (8.7-10.4); CARBON DIOXIDE 32 mEq/L (21-32)
[2024-09-03 02:43] LABS: BASOPHILS % 0.4 % (0.0-2.0); EOSINOPHILS % 2.1 % (0.0-5.0); HEMOGLOBIN. 13.4 g/dL (12.0-16.0); LYMPHOCYTES % 41.4 % (20.0-50.0); MEAN CORPUSCULAR HEMOGLOBIN 30.8 pg (28.0-32.0); MEAN CORPUSCULAR HGB CONC 34.2 g/dL (31.0-37.0); MEAN CORPUSCULAR VOLUME 90.1 fL (81.0-99.0); MEAN PLATELET VOLUME 7.4 fl (7.4-10.4); MONOCYTES % 8.5 % (2.0-8.0); NEUTROPHILS % 47.6 % (40.0-76.0); PLATELET 203 x1000/uL (130-400); RED BLOOD CELL COUNT 4.33 mill/uL (4.2-5.4); RED CELL DISTRIBUTION WIDTH 14.5 % (11.6-14.6); WHITE BLOOD COUNT 5.3 x1000/uL (4.5-11.0)
[2024-09-03 02:45] VITALS: BP 161/105; PULSE 72; RESP 16
[2024-09-03] MEDS: KETOROLAC 15MG/ML VIAL IM ONE (02:45)
[2024-09-03 02:47] LABS: CREATININE 0.7 mg/dL (0.6-1.0); GLUCOSE 133 mg/dL (70-105); UREA NITROGEN BLOOD 11 mg/dL (9-23)
[2024-09-03 02:49] LABS: ALANINE AMINOTRANSFERASE 56 IU/L (10-49); ALBUMIN 4.5 g/dL (3.2-4.8); ASPARTATE AMINOTRANSFERASE 24 IU/L (<34); BILIRUBIN DIRECT 0.1 mg/dL (<=3.0); BILIRUBIN TOTAL 0.4 mg/dL (0.1-1.0); PROTEIN TOTAL 7.3 g/dL (6.0-8.3)
[2024-09-03 03:14] LABS: HCG SCREEN NEGATIVE
[2024-09-03 03:33] LABS: TROPONIN I HIGH SENSITIVITY < 4 ng/L (3.0-34)
[2024-09-03] MEDS ORDERED: LIDO-53 TP (04:49)
[2024-09-03] MEDS ORDERED: NAPR-1176 MT (04:49)
== END 2024-09-03 05:00 | disposition home or self-care (01) ==
LOC: ER 01:21
DX: R07.89 Other chest pain (principal); E11.9 Type 2 diabetes mellitus without complications; I10 Essential (primary) hypertension; J45.909 Unspecified asthma, uncomplicated; Z00.01 Encounter for general adult medical examination with abnormal findings; Z79.1 Long term (current) use of non-steroidal anti-inflammatories (NSAID)
CPT/HCPCS: 99285; 71045; 80076; 80048; 84703; 83690; 85025; 84484; 36415; 93005; 96372; J1885; Q0162

== ENCOUNTER 2024-10-02 21:42 | Emergency (ER) | payer OTHER ==
[~2024-10-02] VITALS: Ht 160 cm; Wt 53.0 kg
[~2024-10-02 21:42] MED LIST changes: +LIDO-53 TP; +NAPR-1176 MT
[2024-10-02 22:17] VITALS: O2SAT 99
[2024-10-03] MEDS: KETOROLAC 15MG/ML VIAL IM ONE (00:26)
[2024-10-03] MEDS ORDERED: IBUP-2029 MT (01:37)
[2024-10-03 01:57] VITALS: BP 173/97; PULSE 76; RESP 18; TEMP 36.7; O2SAT 98
== END 2024-10-03 02:01 | disposition home or self-care (01) ==
LOC: ER 21:42
DX: M25.522 Pain in left elbow (principal); M25.422 Effusion, left elbow; E11.9 Type 2 diabetes mellitus without complications; I10 Essential (primary) hypertension; J44.89 Other specified chronic obstructive pulmonary disease; Z79.1 Long term (current) use of non-steroidal anti-inflammatories (NSAID); Z79.899 Other long term (current) drug therapy
CPT/HCPCS: 73070; 99283